=== PATIENT | female | born 1985 | race African-American/Black ===

== ENCOUNTER 2019-09-17 07:22 | Outpatient (CLI) | payer OTHER ==
[~2019-09-17] VITALS: Ht 162.6 cm; Wt 101.4 kg
== END 2019-09-17 08:45 | disposition home or self-care (01) ==
LOC: LDOP 07:22
PROVIDERS: ATTEND Obstetrics & Gynecology
DX: O09.93 Supervision of high risk pregnancy, unspecified, third trimester (principal); O36.8130 Decreased fetal movements, third trimester, not applicable or unspecified; Z3A.35 35 weeks gestation of pregnancy
CPT/HCPCS: 59025; 76815